=== PATIENT | female | born 1960 | race Caucasian/White ===

== ENCOUNTER → 2019-05-24 11:33 | Outpatient (CLI) | payer BC, SELFPAY ==
--- NOTE | ~2019-05-24 | MM_ITS ---
EXAMINATION: MM screening snow BI w dickson HISTORY: Screening mammogram TECHNIQUE: Craniocaudal and mediolateral oblique 3-D tomosynthesis images were obtained and synthetic 2-D images were generated. CAD analysis was submitted and interpreted. COMPARISON: 05/23/2017, 12/28/2015, 10/22/2014 bilateral digital screening mammogram examinations BREAST PARENCHYMAL COMPOSITION: The breasts are heterogeneously dense, which may obscure small masses . FINDINGS: There is no evidence of suspicious mass, calcification, or architectural distortion to sugg est malignancy in either breast. There has been no suspicious interval change. IMPRESSION: 1. No mammographic evidence of malignancy. 2. Recommend routine screening mammography in one year. BI-RADS Category 1: Negative Reviewed, dictated and finalized at location A. [employer]
== END ==
PROVIDERS: PCP Nurse Practitioner Obstetrics & Gynecology; Visit Provider Internal Medicine
DX: Z12.31 Encounter for screening mammogram for malignant neoplasm of breast (principal)
CPT/HCPCS: 77063; 77067

== ENCOUNTER → 2020-02-05 09:08 | Outpatient (CLI) | payer BC, SELFPAY ==
--- NOTE | ~2020-02-05 | DEXA_ITS ---
Bone Density Report Name: Lisy Henao Age: 59 Sex: Female Ethnicity: White Date of : 1960 Indication: osteopenia; postmenopausal Referring Provider: Senia Marie Study: Bone densitometry was performed. Exam Date: February 05, 2020 Accession number: [id number] Bone Density: Region BMD T-score Z-score Classification AP Spine (L1-L4) 0.779 -2.4 -0.9 Osteopenia Femoral Neck (Left) 0.568 -2.5 -1.2 Osteoporosis Total Hip (Left) 0.629 -2.6 -1.5 Osteoporosis Femoral Neck (Right) 0.562 -2.6 -1.2 Osteoporosis Total Hip (Right) 0.654 -2.4 -1.3 Osteopenia Total Hip Mean 0.642 -2.5 -1.4 Osteoporosis World Health Organization criteria for BMD impression classify patients as: Normal (T-score at or above -1.0), Osteopenia (T-score between -1.0 and -2.5), or Osteoporosis (T-score at or below -2.5). 10-year Fracture Risk: FRAX not reported because: Some T-score for Spine Total or Hip Total or Femoral Neck at or below -2.5 Previous Exams: Region Exam Age BMD T-score BMD Change BMD Change Date g/cm2 vs Baseline vs Previous AP Spine(L1-L4) 02/05/2020 59 0.779 -2.4 -0.065* -0.003 05/23/2017 57 0.782 -2.4 -0.062* 0.019 03/25/2014 54 0.763 -2.6 -0.081* -0.057* 01/19/2012 51 0.820 -2.1 -0.024* -0.037* 12/24/2009 49 0.857 -1.7 0.013 0.039* 10/22/2008 48 0.818 -2.1 -0.026* -0.026* 07/16/2004 44 0.844 -1.8 Total Hip(Left) 02/05/2020 59 0.629 -2.6 -0.048* -0.016 05/23/2017 57 0.645 -2.4 -0.032* -0.001 03/25/2014 54 0.646 -2.4 -0.032* -0.057* 01/19/2012 51 0.703 -2.0 0.025 0.006 12/24/2009 49 0.696 -2.0 0.019 0.046* 10/22/2008 48 0.650 -2.4 -0.027 -0.027 07/16/2004 44 0.677 -2.2 Total Hip(Right) 02/05/2020 59 0.654 -2.4 -0.015 0.007 05/23/2017 57 0.647 -2.4 -0.022 -0.014 03/25/2014 54 0.661 -2.3 -0.009 -0.025 01/19/2012 51 0.686 -2.1 0.017 -0.011 12/24/2009 49 0.697 -2.0 0.027 0.035* 10/22/2008 48 0.662 -2.3 -0.007 -0.007 07/16/2004 44 0.669 -2.2 *Denotes significance at 95% confidence level, LSC for AP Spine = 0.022 g/cm2, LSC for Total Hip = 0.027 g/cm2 Clinical Information Provided by Patient: Has used the
== END ==
PROVIDERS: Visit Provider Internal Medicine
DX: M81.0 Age-related osteoporosis without current pathological fracture (principal); M85.88 Other specified disorders of bone density and structure, other site
CPT/HCPCS: 77080

== ENCOUNTER → 2020-07-10 13:34 | Outpatient (CLI) | payer BC, SELFPAY ==
--- NOTE | ~2020-07-10 | MM_ITS ---
EXAMINATION: MM screening snow BI w dickson HISTORY: Screening mammogram TECHNIQUE: Craniocaudal and mediolateral oblique 3-D tomosynthesis images were obtained and synthetic 2-D images were generated. CAD analysis was submitted and interpreted. COMPARISON: 05/24/2019, 05/23/2017, 12/28/2015 BREAST PARENCHYMAL COMPOSITION: The breasts are heterogeneously dense, which may obscure small masses . FINDINGS: Benign right breast calcifications are noted. There is no evidence of suspicious mass, calc ification, or architectural distortion to suggest malignancy in either breast. There has been no susp icious interval change. IMPRESSION: 1. No mammographic evidence of malignancy. 2. Recommend routine screening mammography in one year. BI-RADS Category 2: Benign finding(s). Reviewed, dictated and finalized at location A.
== END ==
PROVIDERS: PCP Internal Medicine; Visit Provider Nurse Practitioner Obstetrics & Gynecology
DX: Z12.31 Encounter for screening mammogram for malignant neoplasm of breast (principal)
CPT/HCPCS: 77063; 77067

== ENCOUNTER → 2021-09-03 14:03 | Outpatient (CLI) | payer BC, SELFPAY ==
--- NOTE | ~2021-09-03 | MM_ITS ---
EXAMINATION: MM screening snow BI w dickson HISTORY: .. TECHNIQUE: Craniocaudal and mediolateral oblique 3-D tomosynthesis images were obtained and synthetic 2-D images were generated. CAD analysis was submitted and interpreted. COMPARISON: No prior mammogram is available for comparison at this institution. BREAST PARENCHYMAL COMPOSITION: The breasts are heterogeneously dense, which may obscure small masses . FINDINGS: There is no evidence of suspicious mass, calcification, or architectural distortion to sugg est malignancy in either breast. There has been no suspicious interval change. IMPRESSION: 1. No mammographic evidence of malignancy. 2. Recommend routine screening mammography in one year. BI-RADS Category 1: Negative Reviewed, dictated and finalized at location A.
== END ==
PROVIDERS: PCP Internal Medicine; Visit Provider Nurse Practitioner Obstetrics & Gynecology
DX: Z12.31 Encounter for screening mammogram for malignant neoplasm of breast (principal)
CPT/HCPCS: 77063; 77067

== ENCOUNTER → 2022-12-15 10:32 | Outpatient (CLI) | payer BC, SELFPAY ==
--- NOTE | ~2022-12-15 | MM_ITS ---
EXAMINATION: MM screening snow BI w dickson HISTORY: Screening mammogram TECHNIQUE: Craniocaudal and mediolateral oblique 3-D tomosynthesis images were obtained and synthetic 2-D images were generated. CAD analysis was submitted and interpreted. COMPARISON: 09/03/2021, 07/10/2020, 05/24/2019 bilateral screening mammogram examinations BREAST PARENCHYMAL COMPOSITION: The breasts are heterogeneously dense, which may obscure small masses . FINDINGS: There is no evidence of suspicious mass, calcification, or architectural distortion to sugg est malignancy in either breast. There has been no suspicious interval change. IMPRESSION: 1. No mammographic evidence of malignancy. 2. Recommend routine screening mammography in one year. BI-RADS Category 1: Negative Reviewed, dictated and finalized at location A.
== END ==
PROVIDERS: PCP Internal Medicine; Visit Provider Nurse Practitioner Obstetrics & Gynecology
DX: Z12.31 Encounter for screening mammogram for malignant neoplasm of breast (principal)
CPT/HCPCS: 77063; 77067

== ENCOUNTER 2023-07-13 12:48 | Outpatient (CLI) | payer MEDICARE, SELFPAY ==
[2023-07-13 13:21] VITALS: BMI 26.9
[2023-07-13 13:22] VITALS: BP 117/70; PULSE 67; PULSE 77; RESP 16; RESP 18; TEMP 36; O2SAT 99
[2023-07-13] MEDS: ZOLEDRONIC ACID 5 MG/100 ML 100 ML 400 MG IVPB (13:33)
== END 2023-07-13 12:49 | disposition home or self-care (01) ==
LOC: CHSTREATRM 13:00
PROVIDERS: PCP Internal Medicine; Visit Provider Internal Medicine
DX: M81.0 Age-related osteoporosis without current pathological fracture (principal)
CPT/HCPCS: 96365; 96374; J3489

== ENCOUNTER 2024-01-23 09:56 | Outpatient (CLI) | payer MEDICARE, SELFPAY ==
--- NOTE | ~2024-01-23 | MM_ITS ---
EXAMINATION: MM screening snow BI w dickson HISTORY: Screening TECHNIQUE: Craniocaudal and mediolateral oblique 3-D tomosynthesis images were obtained and synthetic 2-D images were generated. CAD analysis was submitted and interpreted. COMPARISON: Comparison to multiple prior studies sequentially, with oldest reviewed study dated 12/2015. BREAST PARENCHYMAL COMPOSITION: Dense: The breasts are extremely dense, which lowers the sensitivity of mammography. FINDINGS: There is no evidence of suspicious mass, calcification, or architectural distortion to sugg est malignancy in either breast. There has been no suspicious interval change. IMPRESSION: 1. No mammographic evidence of malignancy. 2. Recommend routine screening mammography in one year. BI-RADS Category 1: Negative Reviewed, dictated and finalized at location B.
== END 2024-01-23 09:57 | disposition home or self-care (01) ==
LOC: MICIMG 09:57
PROVIDERS: PCP Internal Medicine; Visit Provider Internal Medicine
DX: Z12.31 Encounter for screening mammogram for malignant neoplasm of breast (principal)
CPT/HCPCS: 77063; 77067

== ENCOUNTER 2024-08-06 12:24 | Outpatient (CLI) | payer MEDICARE, SELFPAY ==
[2024-08-06 12:32] VITALS: BP 127/73; PULSE 63; RESP 18; TEMP 36.4; O2SAT 97; BMI 26.1
[2024-08-06] MEDS: ZOLEDRONIC ACID 5 MG/100 ML 100 ML 400 MG IVPB (12:47)
--- OUTSIDE RECORDS SUMMARY | 2024-08-06 13:24 | XMS_ITS | Referral Summary ---
Author Organization [facility] [address] [place] [address] Address [address] [place] [address] Care Team Providers Care Frame Sample And Pattern Supervisor Name Role Phone Senia Marie MD Primary Care Provider Encounters Date Type Department Care Team Description 07/09/2024 10:30 AM CDT Lab [address] [phone] 07/09/2024 10:28 AM CDT - 07/09/2024 11:59 PM CDT Hospital Encounter [facility] [address] [place] [id number] Post-menopausal osteoporosis Discharge Disposition: Discharge to home or self care from Last 3 Months Allergies Active Allergy Reactions Criticality Noted Date Comments Sulfa (Sulfonamide Antibiotics) Rash Medium 03/11 Medications cholecalciferol (VITAMIN D-3) 1,000 unit capsule Active fluticasone propionate (FLONASE) 50 mcg/actuation nasal spray USE 2 SPRAY(S) IN EACH NOSTRIL ONCE DAILY Active chlorhexidine (PERIDEX) 0.12 % solution RINSE 1 CAPFUL OF SOLUTION IN MOUTH TWICE DAILY DIRECTED 0 Active venlafaxine XR (EFFEXOR-XR) 75 mg 24 hr capsule TAKE 1 CAPSULE BY MOUTH TWICE DAILY WITH FOOD 0 Active methylPREDNISol one (Medrol, Augustin,) 4 mg DosepackIndicat ions:ALBINA (middle ear effusion), right follow package directions 21 tablet 0 Active Additional Information Patient not taking.Reported on 12/01/2022 Active Problems Problem Noted Date Diagnosed Date Personal history of colonic polyps 05/23/2022 Overview (05/23/2022): Added automatically from request for surgery [id number] Encounter for screening colonoscopy 05/23/2022 Overview (05/23/2022): Added automatically from request for surgery [id number] Social History Tobacco Use Types Packs/Day Years Used Date Smoking Tobacco: Never Smokeless Tobacco: Never Tobacco Cessation:Counseling Given: Not Answered Personal Safety Answer Date Recorded Have you ever been in or are you currently in a harmful physical or emotional relationship or is someone making you feel afraid or unsafe? 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 Gender Identity Not on file Sexual Orientation Not on file Last Filed Vital Signs Vital Sign Reading Time Taken Comments Blood Pressure 143/85 12/01/2022 1:40 PM CDT Pulse 92 12/01/2022 1:40 PM CDT Temperature 36.6 C (97.8 F) 06/27/2022 10:19 AM CDT Respiratory Rate 18 12/01/2022 1:40 PM CDT Oxygen Saturation 100% 06/27/2022 10:19 AM CDT Inhaled Oxygen Concentration - - Weight 68.9 kg (152 lb) 12/01/2022 1:40 PM CDT Height 162.6 cm (5' 4 ) 12/01/2022 1:40 PM CDT Body Mass Index 26.09 12/01/2022 1:40 PM CDT Plan of Treatment Not on file Procedures Procedure Name Priority Date/Time Associated Diagnosis Comments DEXA AXIAL SKELETON BONE DENSITY 1 OR MORE SITES Schedule Routine, Read Routine (OP Routine) 07/09/2024 11:00 AM CDT Post-menopausal osteoporosis URINALYSIS, MICROSCOPIC ONLY Routine 07/09/2024 10:38 AM CDT EGFR Routine 07/09/2024 10:38 AM CDT DIFFERENTIAL AUTO Routine 07/09/2024 10: 38 AM CDT VITAMIN D 25 HYDROXY Routine 07/09/2024 10:38 AM CDT URINALYSIS AND REFLEX TO MICROSCOPIC Routine 07/09/2024 10:38 AM CDT CBC WITH AUTO DIFFERENTIAL Routine 07/09/2024 10:38 AM CDT LIPID PANEL Routine 07/09/2024 10:38 AM CDT COMPREHENSIVE METABOLIC PANEL Routine 07/09/2024 10:38 AM CDT COLONOSCOPY 06/27/2022 8:06 AM CDT from Last 3 Months or Most Recently Relevant to Health Maintenance Results * Dexa Axial Skeleton Bone Density 1 or 2 Site (07/09/2024 11:00 AM CDT) Anatomical Region Laterality Modality Body N/A Other 07/10/2024 5:35 AM CDT Narrative 07/10/2024 5:36 AM CDT EXAM DESCRIPTION: DEXA AXIAL SKELETON BONE DENSITY 1 OR MORE SITES REASON FOR STUDY: 64 y/o year old F with given history of: osteoporosis Osteoporosis screening Post menopausal Paste Thinner/Model: Heart Buddy Discovery SL (S/N [id number]) Facility LSC value of 0.022 for the AP spine, 0.027 for the femur, and 0.023 for the forearm. CLINICAL INFORMATION: Current height: 64 inches Maximum height: 65 inches Weight: 152 pounds Risk factors: Postmenopausal COMPARISON: None available FINDINGS: AP LUMBAR SPINE L1-L4: Total BMD is 0.816 g/cm2 T-score is -2.1 LEFT HIP: Total BMD is 0.614 g/cm2 T-score is -2.7 Femoral neck BMD is 0.493 g/cm2 T-score is -3.2 FRAX: FRAX not reported due to T-scores of hip, femoral neck and/or spine being at or below -2.5 (Osteoporosis). IMPRESSION: Osteoporosis. REFERENCE: Bone mineral density: T-Score: Normal (T-score above or = -1.0) Low bone mass (T-score between -1.0 and -2.5) replaces the previously used term osteopenia Osteoporosis (T-score = or below -2.5) Z-Score: Within the expected range for age (Z-score above -2.0) Below the expected range for age (Z-score is -2.0 or below) Please see below follow up recommendations. Medical evaluation for secondary causes of low bone mineral density may be appropriate. FRAX is a World Health Organization validated fracture risk assessment tool that calculates a person's 10 year probability of a major osteoporosis related fracture and hip fracture. According to the National Osteoporosis Foundation guidelines, postmenopausal women and men age 50 or older with low bone mass and a 10 year probability of a major osteoporosis related fracture = or greater than 20% or a 10 year probability of a hip fracture = or greater than 3% should be considered for pharmacological treatment for the prevention of osteoporosis. For further information, including treatment recommendations, please refer to the 2019 ISCD Official Positions (http://www.iscd.org) and the NOF's Clinician's Guide to Prevention and Treatment of Osteoporosis (http://www.nof.org/professionals/clinical-guidelines) THIS IS AN ELECTRONICALLY VERIFIED FINAL REPORT 07/10/2024 5:36 AM - Electronically signed by Miguel Harrington M.D. MF: LIO Report ID: [id number] Reading Location: [place] [address] Procedure Note Miguel Harrington MD - 07/10/2024 EXAM DESCRIPTION: DEXA AXIAL SKELETON BONE DENSITY 1 OR MORE SITES REASON FOR STUDY: 64 y/o year old F with given history of:osteoporosis Osteoporosis screening Post menopausal Paste Thinner/Model: Heart Buddy Discovery SL (S/N [id number]) Facility LSC value of 0.022 for the AP spine, 0.027 for the femur, and0.023 for the forearm. CLINICAL INFORMATION: Current height: 64 inches Maximum height: 65 inches Weight: 152 pounds Risk factors: Postmenopausal COMPARISON: None available FINDINGS: AP LUMBAR SPINE L1-L4: Total BMD is 0.816 g/cm2 T-score is -2.1 LEFT HIP: Total BMD is 0.614 g/cm2 T-score is -2.7 Femoral neck BMD is 0.493 g/cm2 T-score is -3.2 FRAX: FRAX not reported due to T-scores of hip, femoral neck and/or spine beingat or below -2.5 (Osteoporosis). IMPRESSION: Osteoporosis. REFERENCE: Bone mineral density: T-Score: Normal (T-score above or = -1.0) Low bone mass (T-score between -1.0 and -2.5) replaces thepreviously used term osteopenia Osteoporosis (T-score = or below -2.5) Z-Score: Within the expected range for age (Z-score above -2.0) Below the expected range for age (Z-score is -2.0 or below) Please see below follow up recommendations. Medical evaluation forsecondary causes of low bone mineral density may be appropriate. FRAX is a World Health Organization validated fracture risk assessmenttool that calculates a person's 10 year probability of a major osteoporosisrelated fracture and hip fracture. According to the National OsteoporosisFoundation guidelines, postmenopausal women and men age 50 or older with low bonemass and a 10 year probability of a major osteoporosis related fracture = or greater than 20% or a 10 year probability of a hip fracture = or greaterthan 3% should be considered for pharmacological treatment for the preventionof osteoporosis. For further information, including treatment recommendations, please referto the 2019 ISCD Official Positions (http://www.iscd.org) and the NOF's Clinician's Guide to Prevention and Treatment of Osteoporosis (http://www.nof.org/professionals/clinical-guidelines) THIS IS AN ELECTRONICALLY VERIFIED FINAL REPORT 07/10/2024 5:36 AM - Electronically signed by Miguel Harrington M.D. MF: LIO Report ID: [id number] Reading Location: [place] [address] us Senia Marie MD IMJuly DXA PROCEDURES Final Res ult * eGFR (07/09/2024 10:38 AM CDT) eGFR 61 >=60 mL/min/1. 73 m2 Comment: Interpretive Data Reference Interval Normal >/= 90 mL/min/1.73m2 Mildly decreased* 60 - 89 mL/min/1.73m2 Mildly to moderately decreased 45 - 59 mL/min/1.73m2 Moderately to severely decreased 30 - 44 mL/min/1.73m2 Severely decreased 15 - 29 mL/min/1.73m2 Kidney Failure < 15 mL/min/1.73m2 *Relative to young adult level Estimated glomerular filtration rate is determined by the 2020 CKD-EPI equation recommended by the National Kidney Foundation (A Unifying Approach to GFR Estimation: Recommendations of the NKF-ASK Task Force on Reassessing the Inclusion of Race in Diagnosing Kidney Disease, JASN 2020). The CKD-EPI equation should not be used for patients with unstable renal function and has not been validated in children and those over 70. Current interpretive data was last reviewed 2021. Blood 07/09/2024 10:3 8 AM CDT 07/09/2024 11:02 AM CDT us Senia Marie MD LAB BLOOD ORDERABLES Final R esult [facility] ([place]) 1 [facility] Department [place] [address] * Differential, auto (07/09/2024 10:38 AM CDT) Neutrophil abs 1.72 1.50 - 6.50 K/cumm Imm gran abs 0.01 0.00 - 0.10 K/cumm [facility] ([place]) Lymphocyte abs 1.86 0.80 - 3.30 K/cumm [facility] ([place]) Monocyte abs 0.30 0.20 - 0.80 K/cumm [facility] ([place]) Eosinophil abs 0.09 0.00 - 0.50 K/cumm [facility] ([place]) Basophil abs 0.02 0.00 - 0.10 K/cumm [facility] ([place]) Neutrophil pct 42.9 % [facility] ([place]) Comment: Interpretive Data Percent cell count reference ranges are not reported, since discordance with absolute values may lead to misinterpretation of CBC data. Current Interpretive Data was last revised on 2017. Imm gran pct 0.3 % [facility] ([place]) Comment: Interpretive Data Percent cell count reference ranges are not reported, since discordance with absolute values may lead to misinterpretation of CBC data. Current Interpretive Data was last revised on 2017. Lymphocyte pct 46.5 % [facility] ([place]) Comment: Interpretive Data Percent cell count reference ranges are not reported, since discordance with absolute values may lead to misinterpretation of CBC data. Current Interpretive Data was last revised on 2017. Monocyte pct 7.5 % [facility] ([place]) Comment: Interpretive Data Percent cell count reference ranges are not reported, since discordance with absolute values may lead to misinterpretation of CBC data. Current Interpretive Data was last revised on 2017. Eosinophil pct 2.3 % [facility] ([place]) Comment: Interpretive Data Percent cell count reference ranges are not reported, since discordance with absolute values may lead to misinterpretation of CBC data. Current Interpretive Data was last revised on 2017. Basophil pct 0.5 % [facility] ([place]) Comment: Interpretive Data Percent cell count reference ranges are not reported, since discordance with absolute values may lead to misinterpretation of CBC data. Current Interpretive Data was last revised on 2017. Blood 07/09/2024 10:3 8 AM CDT 07/09/2024 11:02 AM CDT us Senia Marie MD LAB BLOOD ORDERABLES Final R esult [facility] ([place]) 1 [facility] Department [place] [address] * (ABNORMAL) Urinalysis reflex to microscopic (07/09/2024 10:38 AM CDT) Color, ur Yellow Yellow Clarity, ur Clear Clear [facility] ([place]) Specific gravity, ur 1.020 1.003 - 1.030 [facility] ([place]) pH, urine 5.5 [facility] ([place]) Comment: Interpretive Data U rine pH is affected by diet, medications, systemic acid-base disturbances, and renal tubular function. pH may affect urinary stone formation. For example, urine pH below 6.0 may help reduce the tendency for calcium phosphate stones and pH greater than 6.0 may reduce the tendency for uric acid stone formation. Source: [facility] [email or web address] Current Interpretive Data was last revised on 2017 Protein, ur ql Negative Negative [facility] ([place]) Glucose, ur ql Negative Negative [facility] ([place]) Ketones, ur Negative Negative [facility] ([place]) Bilirubin, ur Negative Negative [facility] ([place]) Blood, ur Negative Negative [facility] ([place]) Urobilinogen, ur <2.0 <2.0 mg/dL [facility] ([place]) Nitrite, ur Negative Negative [facility] ([place]) Leukocyte esterase, ur 2+(A) Negative [facility] ([place]) UA reflex comment Reflex to microscopic UA will be performed. [facility] ([place]) Urine 07/09/2024 10:3 8 AM CDT 07/09/2024 11:43 AM CDT us Senia Marie MD LAB URINE ORDERABLES Final R esult [facility] ([place] 1 [facility] Department [place] [address] * CBC with auto differential (07/09/2024 10:38 AM CDT) WBC 4.00 3.80 - 9.90 K/cumm Hgb 13.5 11.9 - 15.5 g/dL [facility] ([place]) Hct 40.2 35.6 - 45.5 % [facility] ([place]) Plt 195 150 - 400 K/cumm [facility] ([place]) MPV 11.0 9.1 - 12.3 fL [facility] ([place]) RBC 4.33 3.90 - 5.20 M/cumm [facility] ([place]) MCV 92.8 81.3 - 96.4 fL [facility] ([place]) MCH 31.2 27.1 - 33.3 pg [facility] ([place]) MCHC 33.6 32.3 - 35.7 g/dL [facility] ([place]) RDW CV 13.3 11.1 - 14.9 % [facility] ([place]) RDW SD 45.4 35.7 - 48.1 fL [facility] ([place]) NRBC abs 0.00 0.00 - 0.01 K/cumm [facility] ([place]) Blood 07/09/2024 10:3 8 AM CDT 07/09/2024 11:02 AM CDT Senia Marie MD LAB BLOOD ORDERABLES Final R esult Performing Organization Address City/[facility]/ZIP Co de Phone Number [facility] ([place] 1 [facility] [email or web address] [address] * Vitamin D 25 hydroxy (07/09/2024 10:38 AM CDT) Vitamin D 25-OH 62 30 - 80 ng/mL Blood 07/09/2024 10:3 8 AM CDT 07/09/2024 11:03 AM CDT Senia Marie MD LAB BLOOD ORDERABLES Final R esult Performing Organization Address City/[facility] Co de Phone Number [facility] ([place]) 1 [facility] [email or web address] [address] * (ABNORMAL) Urinalysis, microscopic only (07/09/2024 10:38 AM CDT) WBC, ur 0-5 0 - 5 /HPF RBC, ur 0-2 0 - 2 /HPF [facility] ([place]) Epithelial cells, squamous, ur 11-20(A) 0 - 5 /HPF [facility] ([place]) Comment:Suggestive of contam ination. Consider recollection by clean catch. Bacteria, ur Trace(A) [facility] ([place]) Mucous, ur Present(A ) [facility] ([place]) Urine 07/09/2024 10:3 8 AM CDT 07/09/2024 11:43 AM CDT us Senia Marie MD LAB URINE ORDERABLES Final R esult [facility] ([place]) 1 [facility] Department [place] [address] * (ABNORMAL) Lipid panel (07/09/2024 10:38 AM CDT) Cholesterol 204(H) 30 - 199 mg/dL Comment: Interpretive Data Ages < or = 19 years Acceptable: <170 mg/dL Borderline high: 170-199 mg/dL High: >or= 200 mg/dL Ages > or = 20 years Desirable: <200 mg/dL Borderline high: 200-239 mg/dL High: >or= 240 mg/dL Literature References: 1. Expert Panel on Integrated Guidelines for Cardiovascular Health and Risk Reduction in Children and Adolescents. Pediatrics 2011;128:S213 2. NCEP Expert Panel. Circulation 2004;110:227 Current Interpretive Data was last revised on 2017. Triglycerides 97 <=149 mg/dL [facility] ([place]) Comment: Interpretive Data Ages < or = 9 years Acceptable: <75 mg/dL Borderline high: 75-99 mg/dL High: >or= 100 mg/dL Ages 10 to 20 years Acceptable: <90 mg/dL Borderline high: 90-129 mg/dL High: >or= 130 mg/dL Ages > or = 20 years Desirable: <150 mg/dL Borderline high: 150-199 mg/dL High: 200-499 mg/dL Very high: >or= 499 mg/dL Literature References: 1. Expert Panel on Integrated Guidelines for Cardiovascular Health and Risk Reduction in Children and Adolescents. Pediatrics 2011;128:S213 2. NCEP Expert Panel. Circulation 2004;110:227 Current Interpretive Data was last revised on 2017. HDL 81 >=40 mg/dL [facility] ([place]) Comment: Interpretive Data Ages < or = 19 years Acceptable: >45 mg/dL Borderline low: 40-45 mg/dL Low: <40 mg/dL Ages > or = 20 years Desirable: >or= 60 mg/dL Low: <40 mg/dL Literature References: 1. Expert Panel on Integrated Guidelines for Cardiovascular Health and Risk Reduction in Children and Adolescents. Pediatrics 2011;128:S213 2. NCEP Expert Panel. Circulation 2004;110:227 Current Interpretive Data was last revised on 2017. LDL, calculated 106 <=129 mg/dL [facility] ([place]) Comment: Interpretive Data Ages < or = 19 years Acceptable: <110 mg/dL Borderline high: 110-129 mg/dL High: >or= 130 mg/dL Ages > or = 20 years Optimal: <100 mg/dL Near optimal: 100-129 mg/dL Borderline high: 130-159 mg/dL High: >160 mg/dL Calculated using the Myke LDL-C estimating equation. This equation was implemented on 2023. Prior to this date LDL-C was estimated using the Friedewald equation. Literature References: 1. Expert Panel on Integrated Guidelines for Cardiovascular Health and Risk Reduction in Children and Adolescents. Pediatrics 2011;128:S213 2. NCEP Expert Panel. Circulation 2004;110:227 3. Myke M et al. SUMAN Cardiol. 2020 August 08;5(5):540-548. doi: 10.1001/jamacardio.2020.0013 Current Interpretive Data was last revised on 2023. Non-HDL Cholesterol 123 mg/dL [facility] ([place]) Comment: Interpretive Data Ages < or = 19 years Acceptable: <120 mg/dL Borderline high: 120-144 mg/dL High: >145 mg/dL Ages > or = 20 years When triglycerides are >200 mg/dL, Non-HDL cholesterol is a secondary target of therapy with treatment goals that are 30 mg/dL greater than the LDL cholesterol target. Literature References: 1. Expert Panel on Integrated Guidelines for Cardiovascular Health and Risk Reduction in Children and Adolescents. Pediatrics 2011;128:S213 2. NCEP Expert Panel. Circulation 2004;110:227 Current Interpretive Data was last revised on 2017. Chol/HDL ratio 3 [facility] ([place]) Blood 07/09/2024 10:3 8 AM CDT 07/09/2024 11:02 AM CDT us Senia Marie MD LAB BLOOD ORDERABLES Final R esult [facility] ([place]) 1 [facility] Department [place] [address] * Comprehensive metabolic panel (07/09/2024 10:38 AM CDT) Sodium 142 135 - 145 mmol/L Potassium, pl 4.4 3.3 - 4.9 mmol/L [facility] ([place]) Chloride 107 97 - 110 mmol/L [facility] ([place]) CO2 24 22 - 32 mmol/L [facility] ([place]) Anion gap 12 2 - 15 mmol/L [facility] ([place]) BUN 14 6 - 25 mg/dL [facility] ([place]) Creatinine 1.01 0.60 - 1.10 mg/dL [facility] ([place]) Glucose 98 70 - 199 mg/dL [facility] ([place]) Comment: Interpretive Data Fasting glucose >/= 126 mg/dl is diagnostic for diabetes. Fasting is defined as no caloric intake for at least 8 hours. Fasting glucose between 100 mg/dl to 125 mg/dl is diagnostic of prediabetes. In a patient with classic symptoms of hyperglycemia or hyperglycemic crisis, a random glucose >/= 200 mg/dl is diagnostic for diabetes. In the absence of unequivocal hyperglycemia, results should be confirmed by repeat testing. The classification and Diagnosis of Diabetes Diabetes Care 2021; 46: S19-S40. Current interpretive data was last revised 2022. Calcium 9.2 8.5 - 10.3 mg/dL [facility] ([place]) Bilirubin, total 0.3 0.1 - 1.2 mg/dL [facility] ([place]) Protein, pl 6.7 6.5 - 8.5 g/dL [facility] ([place]) Albumin 4.0 3.5 - 5.0 g/dL [facility] ([place]) Alk phos 79 40 - 130 Units/L [facility] ([place]) ALT 11 7 - 45 Units/L [facility] ([place]) AST 16 10 - 45 Units/L [facility] ([place]) Blood 07/09/2024 10:3 8 AM CDT 07/09/2024 11:02 AM CDT us Senia Marie MD LAB BLOOD ORDERABLES Final R esult [facility] ([place]) 1 [facility] Department [place] [address] * COLONOSCOPY (06/27/2022 8:06 AM CDT) Anatomical Region Laterality Modality Other Narrative Procedure Note Harish Mancilla MD - 06/27/2022 8:06 AM CDT [facility] Patient Name: Lisy Henao Procedure Date: 06/27/2022 8:06 AM Date of : 1960 Admit Type: Outpatient Age: 62 Gender: Female Attending MD: Harish Mancilla M.D. Room: [facility] ENDOSCOPY ROOM 2 Note Status: Finalized Patient Profile: Refer to note in patient chart for documentation of history and physical. Procedure: Colonoscopy Indications: High risk colon cancer surveillance: Personalhistory of colonic polyps, Last colonoscopy: November 2014 Referring MD: Senia Marie MD Providers: Harish Mancilla M.D. Impression: - Hemorrhoids found on perianal exam. - The entire examined colon is normal. - No specimens collected. Recommendation: - Discharge patient to home. - Resume previous diet. - Continue present medications. - Repeat colonoscopy in 5 years for surveillance. - Return to primary care physician as previously scheduled. Medicines: Propofol per Anesthesia Complications: No immediate complications. Estimated Blood Loss: Estimated blood loss: none. Procedure: Pre-Anesthesia Assessment: - This assessment was completed [Time ofAssessment] prior to the administration of sedation. The benefits, risks and alternatives of theprocedure and sedation were discussed and informed consentwas obtained. All questions were answered. Please referto the signed informed consent document in the medical record. The bowel preparation used was Miralax via split dose instruction. The bowel preparation usedwas bisacodyl tablets via split dose instruction. The scope was passed under direct vision. TheColonoscope [id number] was introduced through the anus and advanced to the the cecum, identified by appendiceal orifice and ileocecal valve. The colonoscopy was performed without difficulty. The patient tolerated the procedure well. The qualityof the bowel preparation was adequate to identifypolyps. The ileocecal valve, appendiceal orifice, andrectum were photographed. Findings: Hemorrhoids were found on perianal exam. The colon (entire examined portion) appeared normal. Electronically signed by Harish Mancilla M.D. Harish Mancilla M.D. 06/27/2022 9:51:06 AM Number of Addenda: 0 Note Initiated On: 06/27/2022 8:06 AM Procedure Code(s): --- Professional --- G0105, Colorectal cancer screening; colonoscopy on individual at high risk --- Technical --- G0105, Colorectal cancer screening; colonoscopy on individual at high risk Diagnosis Code(s): --- Professional --- K64.9, Unspecified hemorrhoids Z86.010, Personal history of colonic polyps --- Technical --- K64.9, Unspecified hemorrhoids Z86.010, Personal history of colonic polyps CPT copyright 2020 [employer]. All rights reserved. The codes documented in this report are preliminary and upon hot strip finisher reviewmay be revised to meet current compliance requirements. Recognized by the [employer] for promoting quality in endoscopy Harish Mancilla MD ENDOSCOPY PROCEDURES Final Re sult from Last 3 Months or Most Recently Relevant to Health Maintenance [place] [address] [place] [address] [place] [address] [place] [facility] [place] [address] [facility] Advance Directives For more information, please contact: [phone] * Full Code (Latest Code Status on File) Date Activated Date Inactivated Comments 06/27/2022 7:43 AM 06/27/2022 2:49 PM * Full Code Date Activated Date Inactivated Comments 06/27/2022 7:43 AM 06/27/2022 7:43 AM Care Teams Frame Sample And Pattern Supervisor Relationship Specialty Start Date End Date Senia Marie MD [address] [place] [address] PCP - General Internal Medicine 04/05/20
--- OUTSIDE RECORDS SUMMARY | 2024-08-06 13:24 | XMS_ITS | Clinical Summary ---
Author Organization [facility] [address] [place] [address] Address [address] [place] [address] Care Team Providers Care Power Shear Operator Name Role Phone Senia Marie MD Primary Care Provider [phone] Allergies Active Allergy Reactions Criticality Noted Date [...] (05/23/2022): Added automatically from request for surgery [id number] Encounter for screening colonoscopy 05/23/2022 Overview (05/23/2022): Added automatically from request for surgery [id number] Encounters Date Type Department Care Team Description 07/09/2024 10:30 AM CDT Lab [facility] [address] [place] [address] 07/09/2024 10:28 AM CDT - 07/09/2024 11:59 PM CDT Hospital Encounter [facility] [address] [place] [address] Post-menopausal osteoporosis Discharge Disposition: Discharge to home or self care from Last 3 Months Surgical History Surgery Date Site/Laterality Comments COLONOSCOPY 11/20/2014 Social History Tobacco Use Types Packs/Day Years [...] on file 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 Gender Identity Not on file Sexual Orientation Not on file Obstetrics History Last Filed Vital Signs Vital Sign Reading [...] 12/01/2022 1:40 PM CDT Plan of Treatment Health Maintenance Due Date Last Done Comments Depression Screening 1960 Fall Risk Assessment 1960 Hepatitis C Screening 1960 Hepatitis B Screening 1976 Pneumococcal vaccine 65+ (2 of 2 - PPSV23) 11/27/2018 11/27/2017 Breast Cancer Screening-Mammogram 09/03/2022 022, 07/10/2020 Well Visit 65+ 2023 Covid-19 Vaccine (3 - 2023-2 5 season) 2023 05/22/2020, 04/23/2020 Osteoporosis Screening-Bone Density Scan 07/09/2026 07/09/2024 DTaP/Tdap/Td Vaccine (3 - Td or Tdap) 05/17/2031 05/17/2021, 07/11/2011 Colon Cancer Screening-Colonoscopy 06/27/2032 06/27/2022, 11/20/2014, 11/29/2012 Zoster Vaccine Completed 06/26/2020, 01/09, 11/27/2017 Influenza Vaccine Completed 01/02/2024, , 02/04/2020, Additional history exists Procedures Procedure Name Priority Date/Time Associated Diagnosis [...] history of: osteoporosis Osteoporosis screening Post menopausal Cytopathologist/Model: PercuVision (S/N [id number]) Facility LSC value of 0.022 for the [...] Miguel Harrington M.D. MF: LIO Report ID: [id number] Reading Location: [id number] Procedure Note Miguel Harrington MD - 07/10/2024 EXAM DESCRIPTION: DEXA AXIAL SKELETON BONE DENSITY 1 OR MORE SITES REASON FOR STUDY: 64 y/o year old F with given history of:osteoporosis Osteoporosis screening Post menopausal Cytopathologist/Model: opvizor Discovery SL (S/N [id number]) Facility LSC value of 0.022 for the [...] Miguel Harrington M.D. MF: LIO Report ID: [id number] Reading Location: [place] [address] [place] Senia Marie MD IMG DXA PROCEDURES Final Res ult * eGFR [...] BLOOD ORDERABLES Final R esult [facility] ([place]) 1 [facility] Department [place] [address] * Differential, auto (07/09/2024 10:38 AM CDT) Neutrophil abs 1.72 1.50 - 6.50 K/cumm Imm gran abs 0.01 0.00 - 0.10 K/cumm [facility] ([place]) Lymphocyte abs 1.86 0.80 - 3.30 K/cumm [facility] ([place]) Monocyte abs 0.30 0.20 - 0.80 K/cumm [facility] ([place]) Eosinophil abs 0.09 0.00 - 0.50 K/cumm [facility] ([place]) Basophil abs 0.02 0.00 - 0.10 K/cumm [facility] ([place]) Neutrophil pct 42.9 % [facility] ([place]) Comment: Interpretive Data Percent cell count reference ranges are not reported, since discordance with absolute values may lead to misinterpretation of CBC data. Current Interpretive Data was last revised on 2017. Imm gran pct 0.3 % [facility] ([place]) Comment: Interpretive Data Percent cell count reference ranges are not reported, since discordance with absolute values may lead to misinterpretation of CBC data. Current Interpretive Data was last revised on 2017. Lymphocyte pct 46.5 % [facility] ([place]) Comment: Interpretive Data Percent cell count reference ranges are not reported, since discordance with absolute values may lead to misinterpretation of CBC data. Current Interpretive Data was last revised on 2017. Monocyte pct 7.5 % [facility] ([place]) Comment: Interpretive Data Percent cell count reference ranges are not reported, since discordance with absolute values may lead to misinterpretation of CBC data. Current Interpretive Data was last revised on 2017. Eosinophil pct 2.3 % [facility] ([place]) Comment: Interpretive Data Percent cell count reference ranges are not reported, since discordance with absolute values may lead to misinterpretation of CBC data. Current Interpretive Data was last revised on 2017. Basophil pct 0.5 % [facility] ([place]) Comment: Interpretive Data Percent cell count reference ranges are not reported, since discordance with absolute values may lead to misinterpretation of CBC data. Current Interpretive Data was last revised on 2017. Blood 07/09/2024 10:3 8 AM CDT 07/09/2024 11:02 AM CDT us Senia Marie MD LAB BLOOD ORDERABLES Final R esult [facility] ([place]) 1 [facility] Department [place] [address] * (ABNORMAL) Urinalysis reflex to microscopic (07/09/2024 10:38 AM CDT) Color, ur Yellow Yellow Clarity, ur Clear Clear [facility] ([place]) Specific gravity, ur 1.020 1.003 - 1.030 [...] tendency for uric acid stone formation. Source: [facility] [employer] Current Interpretive Data was last revised on [...] MD LAB URINE ORDERABLES Final R esult Performing Organization Address City/[facility]/ZIP Co de Phone Number [facility] ([place]) 1 [facility] [place] [address] * CBC with auto differential (07/09/2024 10:38 [...] ([place]) MCV 92.8 81.3 - 96.4 fL [facility] ([place]) MCH 31.2 27.1 - 33.3 pg [facility] ([place]) MCHC 33.6 32.3 - 35.7 g/dL [facility] ([place]) RDW CV 13.3 11.1 - 14.9 % [facility] ([place]) RDW SD 45.4 35.7 - 48.1 fL [facility] ([place]) NRBC abs 0.00 0.00 - 0.01 K/cumm [facility] ([place]) Blood 07/09/2024 10:3 8 AM CDT 07/09/2024 11:02 AM CDT us Senia Marie MD LAB BLOOD ORDERABLES Final R esult [facility] ([place]) [address] [facility] [address] * Vitamin D 25 hydroxy (07/09/2024 10:38 AM CDT) Vitamin D 25-OH 62 30 - 80 ng/mL Blood 07/09/2024 10:3 8 AM CDT 07/09/2024 11:03 AM CDT Senia Marie MD LAB BLOOD ORDERABLES Final R esult Performing Organization Address [facility] de Phone Number [facility] ([place]) [address] [facility] [place] [employer] [place] [address] * (ABNORMAL) Urinalysis, microscopic only (07/09/2024 10:38 AM CDT) WBC, ur 0-5 0 - 5 /HPF RBC, ur 0-2 0 - 2 /HPF [facility] ([place]) Epithelial cells, squamous, ur 11-20(A) 0 - 5 /HPF [facility] ([place]) Comment:Suggestive of contam ination. Consider recollection by clean catch. Bacteria, ur Trace(A) [facility] ([place]) Mucous, ur Present(A ) [facility] ([place] Urine 07/09/2024 10:3 8 AM CDT 07/09/2024 11:43 AM CDT Senia Marie MD LAB URINE ORDERABLES Final R esult Performing Organization Address [facility] Co de Phone Number [facility] ([place]) 1 [facility] [place] [address] * (ABNORMAL) Lipid panel (07/09/2024 10:38 AM [...] mg/dL High: >160 mg/dL Calculated using the Stringer LDL-C estimating equation. This equation was implemented [...] on 2023. Non-HDL Cholesterol 123 mg/dL [facility] ([place]) Comment: Interpretive Data Ages < or [...] last revised on 2017. Chol/HDL ratio 3 [facility] ([place]) Blood 07/09/2024 10:3 8 AM CDT 07/09/2024 11:02 AM CDT us Senia Marie MD LAB BLOOD ORDERABLES Final R esult [facility] ([place]) 1 [facility] Department [place] [address] * Comprehensive metabolic panel (07/09/2024 10:38 AM [...] BLOOD ORDERABLES Final R esult [facility] ([place]) 1 [facility] Department [place] [address] * COLONOSCOPY (06/27/2022 8:06 AM CDT) Anatomical Region Laterality Modality Other Narrative Procedure Note Harish Mancilla MD - 06/27/2022 8:06 AM CDT [facility] Patient Name: Lisy Henao Procedure Date: 06/27/2022 8:06 AM Date of : 1960 Admit Type: Outpatient Age: 62 Gender: Female Attending MD: Harish Mancilla M.D. Room: [facility] ROOM 2 Note Status: Finalized Patient [...] scope was passed under direct vision. TheColonoscope [id number] was introduced through the anus and advanced [...] history of colonic polyps CPT copyright 2020 [employer]. All rights reserved. The codes documented in this report are preliminary and upon motion study engineer reviewmay be revised to meet current compliance requirements. Recognized by the [employer] for promoting quality in endoscopy Harish Mancilla MD ENDOSCOPY PROCEDURES Final Re sult from Last 3 Months or Most Recently Relevant to Health Maintenance Insurance [place] HERNANDEZ [id number] [place] CHOICE PRF [place] [facility] [place] MEDIC[place] ADVANTAGE [facility] MEDICARE ADVANTAGE Advance Directives For more information, please contact: [phone] * Full Code (Latest Code Status on File) Date Activated Date Inactivated Comments 06/27/2022 7:43 AM 06/27/2022 2:49 PM * Full Code Date Activated Date Inactivated Comments 06/27/2022 7:43 AM 06/27/2022 7:43 AM Care Teams Power Shear Operator Relationship Specialty Start Date End Date Senia Marie MD [address] [place] [address] PCP - General Internal Medicine 04/05/20
--- OUTSIDE RECORDS SUMMARY | 2024-08-06 13:25 | XMS_ITS | Data Portability ---
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 Patient will come back in a year unless there are new symptoms. [email or web address] Not available 05/12/2020 11:00:57 06/10/2021 06/10/2021 Annual gynecological exam performed. Patient will come back in a year unless there are new symptoms. Not available 06/10/2021 13:24:48 12/15/2022 12/15/2022 Annual gynecological exam performed. Patient will come back in a year unless there are new symptoms. [email or web address] Not available 12/15/2022 13:54:21 12/20/2023 12/20/2023 Annual gynecological exam performed. Patient will come back in a year unless there are new symptoms. [email or web address] Not available 12/20/2023 10:56:12 Plan of Treatment Reminders Order Date Submit Date Provider Last Modified By Organization Details Last Modified Time Details Appointments None recorded. Lab None recorded. Referral None recorded. Procedures None recorded. Surgeries None recorded. Imaging None recorded. Medication Orders venlafaxine ER 75 mg capsule,ext ended release 24 hr [address] [facility] [address], [place], [address], 14:04:46 Patient TargetsNo targets recorded. Patient Instructions Encounter Date Encounter Id Patient Instructions Last Modified By Organization Details Last Modified Time 05/12/2020 [id number] [email or web address] Not available 11:33:25 Reason for Referral None Reported. 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 Elect schuyler deluna ingris d by Doyle Miranda, CT on 022 at 1:39 PM ----- ----- ----- ----- ----- ----- ----- ----- ----- ----- ----- ----- ----- ----- ----- ----- ----- ---- HPV RESUL TS: HPV mRNA E6/E7 : No HPV mRNA Detec beny NOTE: This high risk HPV mRNA assay detec ts fourt een high- risk HPV types (16, 18, 31, 33, 35, 39, 45, 51, 52, 56, 58, 59, 66, 68) witho ut diffe renti ation . COMME NT: Note: This speci men was revie wed by a Cytot echno logis t and/o r Patho logis t (as indic ated in this repor t) after evalu ation using the Thinp rep Imagi ng Syste m. CLINI DMITRY INFOR MATIO N: Menst rual Statu s: LMP (if appli cable ): Clini dmitry Histo ry/Pr eviou s Pap: Type of Neopl nghia (if appli cable ): Signi fican t Clini dmitry Findi ngs: Other Histo ry: Hormo francisco j (if appli cable ): PAP EDUCA ABBY L NOTE: The Pap Test is a scree tavon test with an inher ent false negat patricia rate. Liqui d-bas ed sampl ing may decre ase, but will not elimi ramos, false negat patricia resul ts. A negat patricia resul t does not precl ude the prese nce and/o r devel opmen t of disea se, since the prese nce of abnor mal cells in the sampl e depen ds on the locat ion of the lesio n and sampl ing techn ique. Benitez nued regul ar scree tavon is the best metho d of cance r preve ntion . If repor beny cytol ogic findi ng do not corre late with physi dmitry and/o r histo rical findi ngs, furth er inves tigat ion is recom navarro d, as clini jackeline wells nted. 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 FINAL DIAGN OSIS: Negat patricia for Intra epith elial Lesjose c mon or Fernando oreilly (NIL) . Elect darbychioma amado d by Liberty Shah on 2022 at 1:58 PM ----- ----- ----- ----- ----- ----- ----- ----- ----- ----- ----- ----- ----- ----- ----- ----- ----- ---- HPV RESUL TS: HPV mRNA E6/E7 : No HPV mRNA Detec beny NOTE: This high risk HPV mRNA assay detec ts fourt een high- risk HPV types (16, 18, 31, 33, 35, 39, 45, 51, 52, 56, 58, 59, 66, 68) witho ut diffe renti ation . COMME NT: This speci men was revie wed by a Cytot echno logis t and/o r Patho logis t (as indic ated in this repor t) after evalu ation using the Thinp rep Imagi ng Syste m. CLINI DMITRY INFOR MATIO N: Menst rual Statu s: LMP (if appli cable ): Clini dmitry Histo ry/Pr eviou s Pap: Type of Neopl nghia (if appli cable ): Signi fican t Clini dmitry Findi ngs: Other Histo ry: Hormo francisco j (if appli cable ): PAP EDUCA ABBY L NOTE: The Pap Test is a scree tavon test with an inher ent false negat patricia rate. Liqui d-bas ed sampl ing may decre ase, but will not elimi ramos, false negat patricia resul ts. A negat patricia resul t does not precl ude the prese nce and/o r devel opmen t of disea se, since the prese nce of abnor mal cells in the sampl e depen ds on the locat ion of the santo n and sampl ing techn ique. Benitez nued regul ar scree tavon is the best metho d of cance r preve ntion . If repor beny cytol ogic findi ng do not corre late with physi dmitry and/o r histo rical findi ngs, furth er inves tigat ion is recom navarro d, as clini jackeline wells nted. Not Available [facility] (Lab) [address], [place], [address], 12/19/2022 15:01:07 12/20/19 24 12/20/2023 IMAGE GUIDE D PAP AND HPV REGAR DLESS image guided Pap, HPV regardless of Pap result SEE RESULT S BELOW CASE REPOR T: Cytol ogy Gynec ologi dmitry Repor t Case: [id number] Autho severiano dawkins Provi tere: Kimberley Walsh MD Colle cted: 12/19 1114 Order ing Locat ion: [place] [facility] [place] Recei anh: 12/20 1009 First Merlin n: Jocelyn Silva, CT Speci men: Merlin montes de oca Pap - Image d, Cervi x STATE MENT OF ADEQU ACY: Satis facto ry for evalu ation Trans forma tion zone compo nent absen t ----- ----- ----- ----- ----- ----- ----- ----- ----- ----- ----- ----- ----- ----- ----- ----- ----- ---- FINAL DIAGN OSIS: Negat patricia for Intra epith elial Lesio n or Fernando oreilly (NIL) . Rex baez by Jocelyn Silva, CT on 2023 at 5:32 PM ----- ----- ----- ----- ----- ----- ----- ----- ----- ----- ----- ----- ----- ----- ----- ----- ----- ---- HPV RESUL TS: HPV mRNA E6/E7 : No HPV mRNA Detec beny NOTE: This high risk HPV mRNA assay detec ts fourt een high- risk HPV types (16, 18, 31, 33, 35, 39, 45, 51, 52, 56, 58, 59, 66, 68) witho ut diffe renti ation . COMME NT: This speci men was revie wed by a Cytot echno logis t and/o r Patho logis t (as indic ated in this repor t) after evalu ation using the Thinp rep Imagi ng Syste m. CLINI DMITRY INFOR MATIO N: Menst rual Statu s: LMP (if appli cable ): Clini dmitry Histo ry/Pr eviou s Pap: Type of Neopl nghia (if appli cable ): Signi fican t Clini dmitry Findi ngs: Other Histo ry: Hormo francisco j (if appli cable ): PAP EDUCA ABBY L NOTE: The Pap Test is a scree tavon test with an inher ent false negat patricia rate. Liqui d-bas ed sampl ing may decre ase, but will not elimi ramos, false negat patricia resul ts. A negat patricia resul t does not precl ude the prese nce and/o r devel opmen t of disea se, since the prese nce of abnor mal cells in the sampl e depen ds on the locat ion of the lesio n and sampl ing techn ique. Benitez nued regul ar scree tavon is the best metho d of cance r preve ntion . If repor beny cytol ogic findi ng do not corre late with physi dmitry and/o r histo rical findi ngs, furth er inves tigat ion is recom navarro d, as clini jackeline wells nted. Not Available [facility] (Lab) [address], [place], [address], 12/27/2023 18:36:32 07/11/19 21 07/10/2020 MAMMO , scree tavon, bilat eral No observ ation record ed. THERESA [facility] [address], [place], [address], 07/22/2020 10:17:03 09/04/19 22 09/03/2021 MAMMO , scree tavon, bilat eral No observ ation record ed. [email or web address] [facility] [address], [place], [address], 10/10/2022 15:41:24 Result Notes None recorded. Problems Name Problem SNOMED Code Status Onset Date Resolution Date Notes Provider Name and Address Organization Details Recorded Time Screenin g for malignan t neoplasm of rectum Completed 201006/09/2021 Screenin g for malignan t neoplasm s of the rectum;R ecorded Elsewher e: No Locat ion: [facility] S ource: EHR Cage Cashier eduardo: N Lilliam ce ID: 0001 Antonio lable Time: 02:30:00 PM Joanna Harrison [facility] [address] 13:59:[address] Concept Completed 201706/09/2021 Encntr for obstetrician and gynaecologist exam (general ) (routine ) w/o abn findings ;Recorde d Elsewher e: No Locat ion: [facility] S ource: EHR Cage Cashier eduardo: N Lilliam ce ID: 0001 Antonio lable Time: 11:30:00 AM Joanna Harrison [facility] 2 13:59:36 Urinary tract infectio us disease [id number] Completed 201206/09/2021 Urinary Tract Infectio n;Record ed Elsewher e: No Locat ion: [facility] S ource: EHR Cage Cashier eduardo: N Lilliam ce ID: 0001 Antonio lable Time: 01:00:00 PM Joanna Harrison [facility] 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 2 13:59:37 Adult health examinat ion Completed 201006/09/2021 Routine general medical examinat ion at a [facility] ;Practic e ID: 0001 Joanna Harrison [facility] 2 13:59:01 Screenin g for malignan t neoplasm of cervix Completed 201006/09/2021 Pap Smear;Pr actice ID: 0001 Joanna Harrison [facility] 2 13:59:30 Cytologi c finding [id number] Completed 201206/09/2021 Pap Abnormal LGSIL;Pr actice ID: 0001 Joanna Harrison [facility] 2 13:59:08 Neoplasm of uterine cervix Completed 201506/09/2021 Moderate cervical dysplasi a;Record ed Elsewher e: No Locat ion: [facility] S ource: EHR Cage Cashier eduardo: N Geoffti ce ID: 0001 Antonio lable Time: 05:00:00 PM Joanna Harrison [facility] 2 13:59:23 Dizzines s and giddines s [id number] Completed 201406/09/2021 Dizzines s;Record ed Elsewher e: No Locat ion: [facility] S ource: EHR Cage Cashier eduardo: N Practi ce ID: 0001 Antonio lable Time: 03:30:00 PM Joanna Harrison [facility] 2 13:59:10 Molluscu m contagio sum infectio n [id number] Completed 201306/09/2021 Mollusca contagio sum;Mitch rded Elsewher e: No Locat ion: [facility] S ource: EHR Cage Cashier eduardo: N Geoffti ce ID: 0001 Antonio lable Time: 03:30:00 PM Joanna Harrison [facility] 2 13:59:22 Low risk human papillom avirus deoxyrib onucleic acid detected in specimen from cervix [id number] Completed 201706/09/2021 Cervical low risk HPV DNA test positive ;Recorde d Elsewher e: No Locat ion: [facility] S ource: EHR Cage Cashier eduardo: N Geoffti ce ID: 0001 Antonio lable Time: 09:15:00 AM Joanna Harrison [facility] 2 13:59:16 Atypical squamous cells on cervical Papanico laou smear cannot exclude high grade squamous intraepi thelial lesion [id number] Completed 201506/09/2021 Atyp squam cell not excl hi grd intrepit h lesn cyto smr crvx;Rec orded Elsewher e: No Locat ion: [facility] S ource: EHR Cage Cashier eduardo: N Geoffti ce ID: 0001 Antonio lable Time: 11:30:00 AM Joanna [facility] [address] 13:59:[address] Concept Completed 201406/09/2021 Encntr for general adult medical exam w/o abnormal findings ;Recorde d Elsewher e: No Locat ion: [facility] S ource: EHR Cage Cashier eduardo: N Practi ce ID: 0001 Antonio lable Time: 03:30:00 PM Joanna Harrison [facility] 2 13:59:34 Overweig ht [id number] Completed 201306/09/2021 Overweig ht;Recor ded Elsewher e: No Locat ion: [facility] S ource: EHR Cage Cashier eduardo: N Practi ce ID: 0001 Antonio lable Time: 01:00:00 PM Joanna Harrison [facility] 2 13:59:27 Osteopor osis [id number] Completed 201306/09/2021 Osteopor osis;Rec orded Elsewher e: No Locat ion: [facility] S ource: EHR Cage Cashier eduardo: N Geoffti ce ID: 0001 Antonio lable Time: 04:53:49 PM Joanna [address] [facility], [facility] 2 13:59:25 Body mass index 25-29 - overweig ht [id number] Completed 201706/09/2021 Body mass index (BMI) 26.0-26. 9, adult;Re corded Elsewher e: No Locat ion: [facility] S ource: EHR Cage Cashier eduardo: N Geoffti ce ID: 0001 Antonio lable Time: 11:30:[address] [facility] 13:59:04 Cervical intraepi thelial neoplasi a grade 1 [id number] Completed 201206/09/2021 AURELIO 1 Mild Dysplasi a Of Cervix;Danielle hernandeztice ID: 0001 Joanna Harrison [facility] 2 13:59:07 Abnormal cervical Papanico laou smear [id number] Completed 201406/09/2021 Other abnormal papanico laou smear of cervix and cervical HPV;Prac rishi ID: 0001 Joanna Harrison [facility] 2 13:58:59 Low grade squamous intraepi thelial lesion on cervical Papanico laou smear [id number] 105 Completed 201506/09/2021 Low grade intrepit h lesion cyto smr crvx (LGSIL); Practice ID: 0001 Joanna Harrison [facility] 2 13:59:20 Blood leukocyt e number above referenc e range [id number] Completed 201606/09/2021 Elevated white blood cell count, unspecif ied;Mitch rded Elsewher e: No Locat ion: [facility] S ource: EHR Cage Cashier eduardo: N Geoffti ce ID: 0001 Antonio lable Time: 04:30:00 PM Joanna [facility] 2 13:59:18 Evaluati on finding Completed 201906/09/2021 Hematuri a, unspecif ied;Mitch rded Elsewher e: No Locat ion: [facility] S ource: EHR Cage Cashier eduardo: N Geoffti ce ID: 0001 Antonio lable Time: 11:00:00 AM Joanna [facility] 2 13:59:12 Evaluati on finding Completed 201506/09/2021 Unsp abnormal cytolog findings in specmn from cervix uteri;Re corded Elsewher e: No Locat ion: [facility] S ource: EHR Cage Cashier eduardo: N Geoffti ce ID: 0001 Antonio lable Time: 02:14:53 PM Joanna [facility] 2 13:59:14 Problem Notes None recorded. Procedures Surgical History Date Name Laterality Status Provider Name and Address Organization Details Recorded Time 3 Date of Last Mammogram completed [facility] 12/15/2022 13:56:35 3 completed [facility] 12/15/2022 13:55:32 3 Date of Last Colonoscopy completed [facility] 12/15/2022 13:55:32 2 Date of Last Pap Smear completed [facility] 12/15/2022 13:56:11 8 Most Recent Bone Density completed [facility] 06/10/2021 12:44:02 6 Colposcopy completed [facility] 06/10/2021 12:42:25 5 colonoscopy completed [facility] 05/08/2020 15:16:54 3 colonoscopy completed [facility] 05/08/2020 15:16:37 LEEP completed [facility] 05/08/2020 15:17:13 Imaging Results Imaging Date Name Status LastModified by Organiz ation Details LastModified Time 07/10/2020 MAMMO, screening, bilateral completed [facility] [address], [place], [address], 07/22/2020 10:17:03 09/03/2021 MAMMO, screening, bilateral completed [address] [facility] [address], [place], [address], 10/10/2022 15:41:24 Procedure Notes None recorded. Medical Equipment None Reported. Allergies Allergen ID Allergen Name Allergen Category Reaction Reaction Severity Criticality Documentation Date Start Date Code Code System Note Provider Name and Address Organization Details Recorded Time 74763 sulfameth oxazole medicatio n Not available Not available Not available 03/27/2020 00509 RxNorm Comme nt: [facility]at [facility] sativ e Agent : Bactr im; Not Available [facility] 0 14:20:33 66814 trimethop rim medicatio n Not available Not available Not available 03/27/2020 07782 RxNorm Comme nt: Locat [facility]: [facility] C[facility] sativ e Agent : Bactr im; Not Available [facility] 0 14:20:33 Medications Name Sig Start Date Stop Date Status Note LastModified by Organization Details LastModified Time amoxicill in 500 mg capsule TAKE 1 CAPSULE BY MOUTH EVERY 8 HOURS 12/15 completed Not Available Not Available Not Available venlafaxi ne ER 75 mg capsule,e xtended release 24 hr Take 2 capsules by mouth once daily 2023 active Not Available Not Available Not Avai lable verapamil 40 mg tablet TAKE 1 TABLET BY MOUTH IF PALPITAT IONS PERSIST DESPITE VAGAL MANEUVER S. active Not Available Not Available No t Available azithromy aurelio 250 mg tablet 06/09 completed Not Available Not Available Not Available ibuprofen 800 mg tablet TAKE 1 TABLET BY MOUTH EVERY 6 HOURS active Not Available Not Available No t Available acetamino phen 300 mg-codein e 30 mg tablet TAKE 1 TABLET BY MOUTH EVERY 4 TO 6 HOURS NEEDED FOR PAIN 12/15 completed Not Available Not Available Not Available valacyclo vir 500 mg tablet TAKE 2 TABLETS BY MOUTH THREE TIMES DAILY FOR 7 DAYS 12/15 completed Not Available Not Available Not Available venlafaxi ne 100 mg tablet take 1 tablet by oral route 2 times every day with food 12/03 completed Prescrib ed Elsewher e: No [facility]at ion: [facility] odify By: gwen beck DateTime : 09/21/19 17 04:30:00 PM Not Available Not Available Not Available Neurontin 100 mg capsule take 3 capsule by oral route 3 times every day 01/01 completed Prescrib ed Elsewher e: No Locat ion: [facility] odify By: naun mata DateTime : 09/06/19 14 05:45:00 PM Not Available Not Available Not Available Aldara 5 % topical cream packet apply by topical route 3 times every week to the affected area(s) for 8 hours then wash off. 03/25 completed Prescrib ed Elsewher e: No Locat ion: [facility] odify By: kaity Stewart ncountshani DateTime : 02/07/20 14 03:30:00 PM Not Available Not Available Not Available Calcium-6 00 600 mg (as calcium carbonate 1,500 mg) tablet active Prescrib ed Elsewher e: Yes Loca tion: [facility] odify By: uvaldo beck DateTime : 02/23/20 12 08:30:00 AM Not Available Not Available Not Available etodolac 400 mg tablet 06/10 completed Not Available Not Available Not Available ergocalci ferol (vitamin D2) 1,250 mcg (50,000 unit) capsule 12/15 completed Not Available Not Available Not Available methylpre dnisolone 4 mg tablets in a dose pack TAKE BY MOUTH DIRECTED ON INSIDE OF PACKAGE 12/15 completed Not Available Not Available Not Available fluticaso ne propionat e 50 mcg/actua tion nasal spray,jadon pension USE 2 SPRAY(S) IN EACH NOSTRIL ONCE DAILY 12/15 completed Not Available Not Available Not Available Bactrim DS 800 mg-160 mg tablet take 1 tablet by oral route every 12 hours 03/28 completed Prescrib ed Elsewher e: No Locat ion: [facility] odify By: kaity mata DateTime : 03/01/20 13 09:38:39 AM Not Available Not Available Not Available Vitamin D3 25 mcg (1,000 unit) capsule active Prescrib ed Elsewher e: Yes Loca tion: [facility] odify By: tgingric troy beck DateTime : 02/23/20 12 08:30:00 AM Not Available Not Available Not Available nitrofura ntoin monohydra te/macroc rystals 100 mg capsule take 1 capsule by oral route every 12 hours for 7 days with food 12/19 completed Not Available Not Available Not Available Boniva 150 mg tablet take 1 tablet (150MG) by oral route every month on the same date; Take with a full glass of water and remain in an upright position for at least 60 minutes. 02/22 completed Prescrib ed Elsewher e: No Locat ion: [facility] odify By: uvaldo beck DateTime : 01/13/20 11 04:13:41 PM Not Available Not Available Not Available chlorhexi dine gluconate 0.12 % mouthwash RINSE WITH 15 MLS BY MOUTH TWICE DAILY FOR 7 DAYS. DO NOT EAT OR DRINK FOR 30 MINUTES FOLLOWIN G RINSE. 12/19 completed Not Available Not Available Not Available Pristiq 50 mg tablet,ex tended release take 1 tablet by oral route every day 09/20 completed Prescrib ed Elsewher e: Yes Loca tion: [facility] odify By: zackary beck DateTime : 09/21/19 04:30:00 PM Not Available Not Available Not Available venlafaxi ne ER 150 mg tablet,ex tended release 24 hr take 1 tablet by oral route every day in the morning at the same time each day with food 06/16 completed Prescrib ed Elsewher e: No Locat ion: [facility] odify By: gwen beck DateTime : 05/10/19 11:00:00 AM Not Available Not Available Not Available Vitals Date Recorded Body height Body mass index (BMI) Body weight Provider Name and Address Organization Details Last Updated DateTime 06/10/2021 162.56 cm 27.5 kg/m2 68868.78 g Joanna Harrison [facility] 06/10/2021 13:26:05 Date Recorded Systolic blood pressure Diastolic blood pressure Provider Name and Address Organization Details Last Updated DateTime 06/10/2021 126 mm[Hg] 80 mm[Hg] Melina Sousa [facility] [address], [place], [address], [facility] 06/10/2021 13:38:48 Date Recorded Body height Body mass index (BMI) Body weight Systolic blood pressure Diastolic blood pressure Provider Name and Address Organization Details Last Updated DateTime 12/15/2022 162.56 cm 26.8 kg/m2 87879.41 g 133 mm[Hg] 79 mm[Hg] Rufina Crespo [facility] 13:55:13 Date Recorded Body height Body mass index (BMI) Body weight Systolic blood pressure Diastolic blood pressure Provider Name and Address Organization Details Last Updated DateTime 12/20/2023 162.56 cm 26.2 kg/m2 28171.48 g 120 mm[Hg] 81 mm[Hg] Pat Felix [facility] 4 10:56:32 Date Recorded Body height Body mass index (BMI) Body weight Systolic blood pressure Diastolic blood pressure Provider Name and Address Organization Details Last Updated DateTime 05/12/2020 165.1 cm 27.5 kg/m2 24602.74 g 150 mm[Hg] 83 mm[Hg] Christiana Wili [facility] 1 11:07:04 Social History Question Answer Notes LastModified by Organizat ion Details LastModified Time Tobacco Smoking Status Never Smoker Julia Muñiz chi, [facility] 12/15/2022 13:43:26 Do You Have An Advance Directive? No Information n ot available 06/10/2021 What Is Your Level Of Alcohol Consumption? Occasional Information not available 05/12/2020 Are You Blind Or Do You Have Difficulty Seeing? No Information n ot available 06/10/2021 What Is Your Level Of Caffeine Consumption? Moderate Information not available 05/12/2020 How Much Tobacco Do You Chew? None Information not available 06/10/2021 In The 14 Days Before Symptom Onset, Have You Had Close Contact With A Laboratory-confirm ed COVID-19 While That Case Was Ill? No Information n ot available 06/10/2021 In The 14 Days Before Symptom Onset, Have You Had Close Contact With A Person Who Is Under Investigation For COVID-19 While That Person Was Ill? No Information not available 06/10/2021 Have You Been To An Area Known To Be High Risk For COVID-19? No Information not available 06/10/2021 Are You Deaf Or Do You Have Serious Difficulty Hearing? No Information not available 06/10/2021 What Type Of Diet Are You Following? REGULAR Information n ot available 06/10/2021 What Is The Highest Grade Or Level Of School You Have Completed Or The Highest Degree You Have Received? 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 1 [email or web address] Information not available 12/15/2022 On Those Days That You Engage In Moderate To Strenuous Exercise, How Many Minutes, On Average, Do You Exercise? 30 [email or web address] Information not available 12/15/2022 Are There Any Guns Present In Your Home? No Information not available 06/10/2021 Do You Use Protection During Sex? No Information not available 06/10/2021 Do You Use Your Seat Belt Or Car Seat Routinely? Yes Information not available 06/10/2021 Do You Have Smoke And Carbon Monoxide Detectors In Your Home? Yes Information not available 06/10/2021 How Much Tobacco Do You Smoke? No Information not available 06/10/2021 Do You Feel Stressed (tense, Restless, Nervous, Or Anxious, Or Unable To Sleep At Night)? [id number] Information not available 06/10/2021 Do You Use Any Illicit Or Recreational Drugs? No Information not available 05/12/2020 Do You Use Sunscreen Routinely? No Information not available 06/10/2021 Have You Used IV Drugs? No Information not available 06/10/2021 Do You Or Have You Ever Used Any Other Forms Of Tobacco Or Nicotine? No [email or web address] Information not available 12/15/2022 Sex: Unknown Functional Status Question Answer Note LastModified by Organizat ion Details LastModified Time Are you able to walk? YESWOREST Information not available 06/10/2021 What is your exercise level? Occasional Information not available 05/12/2020 Mental Status None recorded. Family History Nothing Reported Notes:Father: Diabetes declani tus, obese Maternal grandmother: ABD CA, etiology, obstetrician and gynaecologist Medical History No medical history recorded. Gynecological History Statement/Question Response Abnormal Pap Y Date of Last Mammogram 12/15/2022 On BCP's at Conception? N N STIs/STDs N HPV Vaccine N Colposcopy 01/21/2016 Current Control Method Menopause Age at First Child 24 Date of Last Colonoscopy 07/23/2022 Most Recent Bone Density 05/25/2017 Sexually Active? Y Menses Monthly N Age of first menstrual cycle 10 Date of Last Pap Smear 06/10/2021 Sexual Problems? N LMP Unknown 08/14/2022 N Obstetrics History GPAL:G 2 P 0 0 0 2 Type Value Living 2 Total 2 Past Encounters Encounter ID Performer Location Encounter Start Date Encounter Closed Date Diagnosis/Indication Diagnosis SNOMED-CT Code Diagnosis ICD10 Code Diagnosis Note [id number] [address]ina [address] [facility] [address] [address] 05/12/2020 10:55:08 05/15/2020 16:11:14 Gynecologic examination [id number] Z01.419 Take Calcium with Vitamin D 12-1500mg daily. Do monthly self breast exams. It is advised to get annual flu shot in the fall and she could obtain at [facility] or [facility]. If you haven't received the Tdap vaccine in the last 10 years you should obtain one as well. Have mammogram yearly, bone density every 2-3 years and colonoscop y every 5-10 years depending on findings and history. Engage in daily exercise of low impact aerobic exercise 45-60 minutes 4-5 times weekly. Avoid tobacco and illicit drugs as well as using moderation with alcohol intake less than 1-2 8 oz beverages daily. This lifestyle behavior pattern will lead to less health conditions and longer life span. If BMI greater than 25 weight watchers or dietary consult advised. Questions have been answered. Patient appears to understand instructio ns, but if you have any further questions call or respond to this email Colonoscop y managed PCP Pap/hpv sent Last pap/hpv 2019 wnl Last abn pap 2016 HSIL but no abn's since this time. Monogamous x 7yrs (second marriage). 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 All staff wore face coverings during this encounter, as well as provided additional cleaning and sanitizing of all surfaces, including countertop s, pens, chairs, door handles, light switches, etc, prior to and following the patient s visit. [id number] Melina [address] [facility] [address] [address] 06/10/2021 13:11:13 06/10/2021 14:04:23 Gynecologic examination [id number] Z01.419 Take Calcium with Vitamin D 12-1500mg daily. Do monthly self breast exams. It is advised to get annual flu shot in the fall and she could obtain at [facility] or [facility]. If you haven't received the Tdap vaccine in the last 10 years you should obtain one as well. Have mammogram yearly, bone density every 2-3 years and colonoscop y every 5-10 years depending on findings and history. Engage in daily exercise of low impact aerobic exercise 45-60 minutes 4-5 times weekly. Avoid tobacco and illicit drugs as well as using moderation with alcohol intake less than 1-2 8 oz beverages daily. This lifestyle behavior pattern will lead to less health conditions and longer life span. If BMI greater than 25 weight watchers or dietary consult advised. Questions have been answered. Patient appears to understand instructio ns, but if you have any further questions call or respond to this email Colonoscop y/Dexa managed PCP & have ordered it for her this year. Pap/hpv sent Last pap/hpv 2019 wnl Last abn pap 2016 HSIL but no abn's since this time. Monogamous x 7yrs (second marriage). Dexa managed PCP Mammo orderedDec lined std screen Going on a trip to [place], [place] with her family. Additional precaution kelly measures were taken to minimize potential exposure to the Covid-19 virus during this patient s visit, including available hand enterprise business architect upon arrive, temperatur e check and being asked a series of screening questions. All staff wore face coverings during this encounter, as well as provided additional cleaning and sanitizing of all surfaces, including countertop s, pens, chairs, door handles, light switches, etc, prior to and following the patient s visit. [id number] [facility] [address] [address] 12/15/2022 13:43:09 12/15/2022 14:20:21 Gynecologic examination [id number] Z01.419 Z11.51 Take Calcium with Vitamin D 12-1500mg daily. Do monthly self breast exams. It is advised to get annual flu shot in the fall and she could obtain at [facility] or [facility] clinic. If you haven't received the Tdap vaccine in the last 10 years you should obtain one as well. Have mammogram yearly, bone density every 2-3 years and colonoscop y every 5-10 years depending on findings and history. Engage in daily exercise of low impact aerobic exercise 45-60 minutes 4-5 times weekly. Avoid tobacco and illicit drugs as well as using moderation with alcohol intake less than 1-2 8 oz beverages daily. This lifestyle behavior pattern will lead to less health conditions and longer life span. If BMI greater than 25 weight watchers or dietary consult advised. Questions have been answered. Patient appears to understand instructio ns, but if you have any further questions call or respond to this email Pap/hpv Opts to sendSTD Screen declinedGe netic Screen discussedC olon Screen naDexa Screen naRoutine Labs PCP Menopausal symptom [id number] N95.1 Doing well on this therapy wishes to continue.a ppropriate to continue at this time. [id number] SOCORRO PATEL MD [place] [address] [address] 12/20/2023 10:45:22 12/20/2023 12:04:50 Gynecologic examination [id number] Z01.419 Z11.51 Well woman care- Cervical cancer screening: Pap smear obtained today, will follow up on the results with the patient as they become available- Breast cancer screening: mammogram ordered- HPV immunizati on: does not qualify- STD testing: declined- hereditary cancer screening: does not qualify for testing Health Concerns Section Related Observation LastModified by Organization Detai ls LastModified Time None Recorded Concern Status LastModified by Organization Details LastModified Time None Recorded Advance Directives Directive N: Payers Encounter Date Sequence Insurance Name Policy Number Policy Bermeo Covered Member ID Bermeo Member ID Guarantor Name 05/12/2020 1 [place] [id number] Lisy A Juliano [id number] Lisy A Juliano 06/10/2021 1 [place] [id number] Lisy A Juliano [id number] Lisy A Juliano 12/15/2022 1 [place] [id number] Lisy Henao [id number] Lisy Henao 12/20/2023 1 [facility] (MEDICARE REPLACEMENT/A DVANTAGE - HMO) [id number] Lisy Henao [id number] Lisy Henao Notes Date Note Type Note Provider Name and Address Organization Details Recorded Time 05/12/2020 text/html Annual GYNReport ed bypatient.History: no gynecologic complaints Menstrual cycle:postmenopaus e Urinary symptoms:No hematuria; No incontinence Vulva:No genital lesion Vagina:Normal vaginal discharge Breast:No breast pain; No breast lump; No nipple discharge Current Contraception:Bourbon gamous relationship; postmenpause Sexual complaints:No sexual complaints; No pain during intercourse; Normal libido Menopausal Symptoms:No menopausal symptoms; Normal vaginal lubrication Psychological symptoms:No depression; No anxiety; No PMDD Preventive measures:Encourage self breast examination; Encourage regular exercise; Encourage no tobacco use; Encourage regular mammograms starting age 40; History of abnormal pap smear/cervical dysplasia; Needs to schedule mammogram; Needs to schedule colonoscopy; Hx of abn pap HSIL 2015 but normal pap/hpv since this time. LES [place] [address], [place], [address], [facility] 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.Menopaus al Symptoms:no menopausal symptoms; normal vaginal lubrication Vaginal Bleeding:history of menopause having occurred; no history of post menopausal bleeding Urinary Symptoms:no hematuria; no incontinence; no nocturia; no urinary frequency Vulva:no genital lesion; no vulvar atrophy Vagina:normal vaginal discharge; no vaginal atrophy Breast:no breast lump; no nipple discharge; no breast pain Sexual Complaints:no sexual complaints Psychological Symptoms:no depression; no anxiety Preventive Measures:encourage regular mammograms starting age 40; encourage self breast examination; encourage regular exercise; encourage no tobacco use; needs to schedule mammogram; needs to schedule colonoscopy; needs to schedule bone density [facility] [place] [address], [place], [address], [facility] 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.Menopaus al Symptoms:no menopausal symptoms; normal vaginal lubrication Vaginal Bleeding:history of menopause having occurred; no history of post menopausal bleeding Urinary Symptoms:no hematuria; no incontinence; no nocturia; no urinary frequency Vulva:no genital lesion; no vulvar atrophy Vagina:normal vaginal discharge; no vaginal atrophy Breast:no breast lump; no nipple discharge; no breast pain Sexual Complaints:no sexual complaints Psychological Symptoms:no depression; no anxiety Preventive Measures:encourage regular mammograms starting age 40; encourage self breast examination; encourage regular exercise; encourage no tobacco use; mammogram performed within the past year; history of recent colonoscopy Melina Sousa [facility] [address], [place], [address], [facility] 12/15/2022 14:16:27 12/20/2023 text/html Presents today f or her annual well-woman exam. Denies abnormal vaginal discharge. She is sexually active and denies dyspareunia. She has not noticed any changes or masses in her breasts. Mammogram scheduled 01/2024. Postmenopausal, no PMB. Has a lesion on her right outer thigh that has been present for years. Has some scaling. No change in size. Some soreness around the spot. SOCORRO PATEL MD [address], [place], [address], [facility] 12/20/2023 11:56:14 OBGyn Episode Ob Episode Information Episode Created Date Number of Fetuses Patient Bloodtype Patient rh Status Prepregnancy Weight lbs Domestic Partner Domestic Partner Phone Father Name Roofer Gypsum Status 05/08/19 21 1 CLOSED Fetus Data First Name Last Name Admitted to NICU Weight (g) Sex Living Outcome Pediatric Complications Fetus ID Race Codes Race Delivery Type [id number] Vaginal Delivery Ric Calculation Initial Ric Date Initial Exam Date Initial Exam Provider Initial Ultrasound Date Last Menstrual Period Date Ultra Sound Weeks Gestation 0 Eighteen To Twenty Week Ric Update Ultra Sound Date Fundal Height At Umbil Quickening Date Ultra Sound Latest Weeks Gestation Final Ric Confirmed By Final Ric Confirmed Date Final Ric Date Ultra Sound Latest Days Gestation 0 0 Menstrual History Last Menstrual Date Menses Monthly On Bcp Conception Prior Menses Frequency Hcg Plus Date Menarche Onset Age Delivery Information Delivery Date Delivery Type Labor Anesthesia Weeks Gestation Incision Type Labor Labor Length Hrs Delivered By Post Complications Tubal Sterilization Discharge Date Comments 1 Anel Discharge Information Feeding Method Contraceptive Method Maternal HG B and HCT Levels Ob Episode Information Episode Created Date Number of Fetuses Patient Bloodtype Patient rh Status Prepregnancy Weight lbs Domestic Partner Domestic Partner Phone Father Name Roofer Gypsum Status 05/08/19 21 1 CLOSED Fetus Data First Name Last Name Admitted to NICU Weight (g) Sex Living Outcome Pediatric Complications Fetus ID Race Codes Race Delivery Type [id number] Vaginal Delivery Ric Calculation Initial Ric Date Initial Exam Date Initial Exam Provider Initial Ultrasound Date Last Menstrual Period Date Ultra Sound Weeks Gestation 0 Eighteen To Twenty Week Ric Update Ultra Sound Date Fundal Height At Umbil Quickening Date Ultra Sound Latest Weeks Gestation Final Ric Confirmed By Final Ric Confirmed Date Final Ric Date Ultra Sound Latest Days Gestation 0 0 Menstrual History Last Menstrual Date Menses Monthly On Bcp Conception Prior Menses Frequency Hcg Plus Date Menarche Onset Age Delivery Information Delivery Date Delivery Type Labor Anesthesia Weeks Gestation Incision Type Labor Labor Length Hrs Delivered By Post Complications Tubal Sterilization Discharge Date Comments 5 [email or web address] Discharge Information Feeding Method Contraceptive Method Maternal HG B and HCT Levels
== END 2024-08-06 13:10 | disposition home or self-care (01) ==
PROVIDERS: PCP Internal Medicine; Visit Provider Internal Medicine
DX: M81.0 Age-related osteoporosis without current pathological fracture (principal)
CPT/HCPCS: 96374; J3489